=== PATIENT | female | born 1945 | race Asian ===

== ENCOUNTER 2017-01-23 00:06 | Emergency (ER) | payer MEDICARE ==
[2017-01-23] MEDS ORDERED: ACETAMINOPHEN 500 MG TABLET ONE (00:22)
[2017-01-23] MEDS ORDERED: OXYCODONE HCL 5 MG TABLET ONE (00:22)
[2017-01-23] MEDS ORDERED: FENTANYL 100 MCG/2 ML VIAL ONE (00:42)
[2017-01-23] MEDS ORDERED: ETOMIDATE 2 MG/ML 10ML VIAL IV ONE (00:57)
[2017-01-23] MEDS ORDERED: KETAMINE HCL 50 MG/1 ML 10ML VIAL ONE (00:57)
[2017-01-23] MEDS ORDERED: ONDANSETRON 4 MG/2ML 2 ML VIAL ONE (01:39)
--- NOTE | 2017-01-23 07:20 | RAD ---
SHOULDER-RIGHT 2 OR MORE VIEWS History: Post reduction. Comparison: 01/23/2017. Findings: 2 views of the right shoulder were performed demonstrating interval reduction of the glenohumeral joint, with the humeral head projecting adjacent to the bony glenoid. A definitive associated fracture is not visualized. The acromiohumeral distance is well maintained. The included portions of the right lung field are within expected. Impression: 1. Interval relocation of the right glenohumeral joint with no definitive associated fracture visualized.
--- NOTE | 2017-01-23 07:21 | RAD ---
SHOULDER-RIGHT 2 OR MORE VIEWS History: Shoulder pain after fall. Comparison: None. Findings: 2 views of the right shoulder demonstrate evidence of glenohumeral dislocation, with the humeral head projecting anterior/inferior to the bony glenoid. A definitive fracture is not identified. The AC joint is not widened. Included portions of the right lung field are within expected. Impression: 1. Right glenohumeral anterior/inferior dislocation without a definitive associated fracture.
--- NOTE | 2017-01-23 07:23 | RAD ---
HUMERUS RIGHT HISTORY: Shoulder pain after fall. COMPARISONS: None. FINDINGS: A single view of the right humerus only was performed demonstrating no definitive fracture. There appears to be anterior glenohumeral dislocation. The soft tissue structures are intact. The included portions of the right lung field are within expected. IMPRESSION: 1. Suspected anterior/inferior right glenohumeral dislocation with no definitive associated fracture.
== END 2017-01-23 02:37 | disposition home or self-care (01) ==
LOC: ED 00:06
DX: S43.004A Unspecified dislocation of right shoulder joint, initial encounter (principal); I10 Essential (primary) hypertension; F10.20 Alcohol dependence, uncomplicated; Z86.718 Personal history of other venous thrombosis and embolism; W01.0XXA Fall on same level from slipping, tripping and stumbling without subsequent striking against object, initial encounter; Y93.02 Activity, running; Y92.017 Garden or yard in single-family (private) house as the place of occurrence of the external cause
CPT/HCPCS: 73060; 73030 ×2; 96375; 99284 ×2; 23650 ×2; 96374; 99152 ×2; J3010; A9270 ×2; J2405